=== PATIENT | male | born 1960 | race African-American/Black ===

== ENCOUNTER 2016-05-06 06:03 | Emergency (ER) | payer SELFPAY ==
[~2016-05-06] VITALS: Ht 170.2 cm; Wt 95.5 kg
[2016-05-06] MEDS ORDERED: LIDOCAINE HCL/PF 1% 2 ML VIAL IM ONE (06:45)
[2016-05-06] MEDS ORDERED: DEXAMETHASONE SOD PHOS 4 MG/ML 5 ML VIAL IM ONE (06:45)
[2016-05-06] MEDS ORDERED: CefTRIAXone SODIUM 1 GM/VIAL IM ONE (06:45)
[2016-05-06 06:56] VITALS: BP 118/76
== END 2016-05-06 06:56 | disposition home or self-care (01) ==
LOC: EMS 06:05
DX: J02.9 Acute pharyngitis, unspecified (principal); J36 Peritonsillar abscess; J03.90 Acute tonsillitis, unspecified
CPT/HCPCS: 96372; 99284; J0696; J1100; J3490